=== PATIENT | male | born 1980 | race African-American/Black ===

== ENCOUNTER 2017-06-20 09:33 | Emergency (ER) | payer OTHER ==
[~2017-06-20] VITALS: Ht 175.3 cm; Wt 63.5 kg
[2017-06-20 10:38] VITALS: BP 135/77
== END 2017-06-20 10:38 | disposition home or self-care (01) ==
LOC: ED 09:33
DX: Z11.3 Encounter for screening for infections with a predominantly sexual mode of transmission (principal); F41.9 Anxiety disorder, unspecified
CPT/HCPCS: 87491; 87591